=== PATIENT | female | born 1970 | race Caucasian/White ===

== ENCOUNTER 2017-04-22 10:43 | Emergency (ER) | payer OTHER ==
[2017-04-22 10:55] VITALS: BP 120/64; PULSE 91; TEMP 99.1; BMI 26.4
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
== END 2017-04-22 17:00 ==
LOC: JER 10:43
CPT/HCPCS: 72100-TC; 72125-TC; 72170-TC; 72220-TC; 84703; 99283-25